=== PATIENT | male | born 1935 | race Caucasian/White ===

== ENCOUNTER 2020-03-19 | Outpatient (REF) | payer MEDICARE, SELFPAY | END 2020-03-19 00:01 | disposition home or self-care (01) | LOC: HO.VC | PROVIDERS: Visit Provider Internal Medicine | DX: Z23 Encounter for immunization (principal) | CPT/HCPCS: 0011A ==

== ENCOUNTER 2020-04-15 | Outpatient (REF) | payer MEDICARE, SELFPAY | END 2020-04-15 00:01 | disposition home or self-care (01) | LOC: HO.VC | PROVIDERS: Visit Provider Internal Medicine | DX: Z23 Encounter for immunization (principal) | CPT/HCPCS: 0012A ==

== ENCOUNTER → 2020-08-13 09:50 | Outpatient (REF) | payer BC, SELFPAY | LOC: HO.CARD 09:50 | PROVIDERS: PCP Internal Medicine; Visit Provider Internal Medicine | DX: I48.19 Other persistent atrial fibrillation (principal); R00.1 Bradycardia, unspecified; I10 Essential (primary) hypertension; Z79.899 Other long term (current) drug therapy; Z87.891 Personal history of nicotine dependence | CPT/HCPCS: 93005 ==

== ENCOUNTER → 2020-08-19 09:53 | Outpatient (REF) | payer MEDICARE, SELFPAY ==
--- NOTE | 2020-08-19 14:27 | ECG_ITS ---
Hook-up date: 2020-08-19 10:19:00 Duration: 45:31:00 Test Indications: PAF Medications: 10888 QRS complexes 404 Ventricular ectopics which represent <1 % of total QRS comp. * Supraventricular ectopics which represent % of total QRS comp. * Paced QRS complexs which represent % of total QRS comp. VENTRICULAR ECTOPY 396 Isolated 44 Bigeminal Cycles 4 Couplets 0 Runs 0 Beats in Runs * Beats LONGEST at * BPM at :: -- * Beats FASTEST at * BPM at :: -- SUPRAVENTRICULAR ECTOPY * Isolated * Couplets * Runs * Beats in Runs * Beats LONGEST at * BPM at :: -- * Beats FASTEST at * BPM at :: -- HEART RATES 33 MIN at 02:05:34 2020-08-20 46 AVG 66 MAX at 18:42:10 2020-08-19 LONGEST RR 1.8800 secs at 04:24:56 2020-08-20 S-T LEVELS Channel 1 - 128 mm at 10:19:00 2020-08-19 - 128 mm at 10:19:00 2020-08-19 Channel 2 - 128 mm at 10:19:00 2020-08-19 - 128 mm at 10:19:00 2020-08-19 Channel 3 - 128 mm at 02:93:81 -- - 128 mm at 02:93:81 Basic rhythm Atrial fibrillation Intermittent with Junctional rhythm Frequent slow VR to AF, 98% of time HR < 60 bp, No significant pauses Occasional Premature ventricular complexes No diary submitted Referred By: Scot Trinidad Overread By: AMELIA MOREIRA MD
== END ==
LOC: HO.CARD 09:53
PROVIDERS: PCP Internal Medicine; Referring Provider Internal Medicine; Visit Provider Internal Medicine
DX: I48.0 Paroxysmal atrial fibrillation (principal); I48.19 Other persistent atrial fibrillation
CPT/HCPCS: 93226

== ENCOUNTER → 2020-08-27 09:43 | Outpatient (REF) | payer MEDICARE, SELFPAY | LOC: HO.SL 09:43 | PROVIDERS: Visit Provider Internal Medicine | DX: G47.33 Obstructive sleep apnea (adult) (pediatric) (principal); I48.19 Other persistent atrial fibrillation | CPT/HCPCS: 95806 ==

== ENCOUNTER → 2020-08-28 11:16 | Outpatient (REF) | payer MEDICARE, SELFPAY ==
--- NOTE | 2020-08-28 11:24 | CA_ITS ---
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 Study Quality: Good ECG Rhythm: Atrial Fibrillation Conclusions: - 1. Mildly reduced LV systolic function with mild LVH with restrictive filling pattern 2. Severe biatrial enlargement 3. Mild aortic regurgitation 4. At least moderate mitral regurgitation 5. Mildly elevated right ventricular systolic pressure 6. No pericardial effusion Findings Left Ventricle Normal left ventricular cavity size. There is mildly increased left ventricular wall thickness. The left ventricular systolic function is mildly decreased. The visually estimated ejection fraction is between 45-50%. Spectral Doppler is indicative of a restrictive filling pattern. Wall Motion Rest Echo Findings The basal inferoseptal and basal inferolateral segments are hypokinetic. 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 All other scored wall segments showed normal motion. Right Ventricle Normal right ventricular cavity size and systolic function. Atria Severe biatrial enlargement. There is no evidence of interatrial shunt. Aortic Valve There is mild calcification of the aortic valve. There is no aortic valve stenosis. There is mild aortic valve regurgitation. Mitral Valve There is mild anterior and posterior mitral leaflet thickening. There is moderate mitral valve regurgitation. There is no mitral valve stenosis. Pulmonic Valve The pulmonic valve is likely normal. Tricuspid Valve Normal tricuspid valve structure. There is mild tricuspid valve regurgitation. Mildly elevated right atrial pressure. Mild pulmonary hypertension is present. Great Vessels All visible segments of the aorta are normal in size. The pulmonary artery was not well visualized. Venous The inferior vena cava is moderately dilated and collapses less than 50% with inspiration. Pericardium/Pleural There is no evidence of pericardial effusion. Prior Study Comparison No previous study in the last 5 years for comparison Measurements 2D Linear Measurements IVSd: 1.23 0.6-0.9/0.6-1.0 cm LVIDd: 5.54 3.9-5.3/4.2-5.9 cm LVIDd Index: 3.30 2.4-3.2/2.2-3.1 cm/m2 LVIDs: 4.16 2.0-3.6 cm LVPWd: 1.27 0.7-1.1 cm Ao Root: 3.90 2.1-3.5 cm LA Diam: 4.30 2.7-3.8/3.0-4.0 cm LAIDs Index: 2.56 1.5-2.3 cm/m2 LV Mass: 363.67 67-162/88-224 g LV Mass Index: 216.47 43-95/49-115 g/m2 LVOT Diam: 2.40 3.0+(-)1.3 cm 2D Systolic Function EF 4C: 41.90 >55% EF 2C: 45.00 >55% Mitral Valve MV Pk E: 1.35 MV PK A: 0.53 MV Decel Time: 213.00 E/A: 2.50 PHT: 62.00 MVA PHT: 3.55 Decel [place]: 6.35 Aortic Valve AoV Pk Erickson: 1.39 AoV Mn Erickson: 0.94 AoV VTI: 0.35 AoV Pk Grad: 8.00 Aov Mn Grad: 4.00 BRIAN Cont.VTI: 2.92 LVOT LVOT Pk Eric[place]on: 0.86 LVOT Mn Erickson: 0.55 LVOT VTI: 0.23 LVOT Pk Grad: 3.00 LVOT Mn Grad: 1.00 LVOT Diam: 2.40 LVOT Area: 4.52 Diastolic Function MV Pk E: 1.35 MV Pk A: 0.53 E/A: 2.50 Right Ventricle TAPSE (mm): 2.49 Tricuspid Valve TR Pk Erickson: 2.89 TR Pk Grad: 33.00 RA Press: 8.00 RVSP: 41.00 Great Vessels Aorta Ao Root-2D: 3.90 2.0-3.7 cm Ao Asc: 3.80 2.1-3.4 cm Updated in Other Vendor System with Status of Final Loki Farrell MD electronically signed on 08/28/2020 2:02:22 PM with status of Final
== END ==
LOC: HO.CARD 11:16
PROVIDERS: Visit Provider Internal Medicine
DX: I25.10 Atherosclerotic heart disease of native coronary artery without angina pectoris (principal); I48.19 Other persistent atrial fibrillation
CPT/HCPCS: 93306

== ENCOUNTER → 2020-09-24 10:18 | Outpatient (BNVA) | payer MEDICARE, SELFPAY | PROVIDERS: PCP Internal Medicine; Referring Provider Internal Medicine; Visit Provider Internal Medicine | DX: I48.19 Other persistent atrial fibrillation (principal); I10 Essential (primary) hypertension; G47.33 Obstructive sleep apnea (adult) (pediatric); R00.1 Bradycardia, unspecified | CPT/HCPCS: 99212 ==

== ENCOUNTER → 2020-10-14 09:46 | Outpatient (BNVA) | payer MEDICARE, SELFPAY | PROVIDERS: PCP Internal Medicine; Visit Provider Internal Medicine | DX: G47.33 Obstructive sleep apnea (adult) (pediatric) (principal); I48.91 Unspecified atrial fibrillation; I10 Essential (primary) hypertension | CPT/HCPCS: 99202 ==

== ENCOUNTER → 2020-11-25 09:48 | Outpatient (BNVA) | payer MEDICARE, SELFPAY | PROVIDERS: PCP Internal Medicine; Visit Provider Internal Medicine | DX: G47.33 Obstructive sleep apnea (adult) (pediatric) (principal) | CPT/HCPCS: 99212 ==

== ENCOUNTER → 2020-12-25 09:58 | Outpatient (BNVA) | payer MEDICARE, SELFPAY | PROVIDERS: PCP Internal Medicine; Visit Provider Internal Medicine | DX: G47.33 Obstructive sleep apnea (adult) (pediatric) (principal) | CPT/HCPCS: 99212 ==

== ENCOUNTER → 2020-12-30 10:04 | Outpatient (BNVA) | payer MEDICARE, SELFPAY | PROVIDERS: PCP Internal Medicine; Referring Provider Internal Medicine; Visit Provider Internal Medicine | DX: I48.19 Other persistent atrial fibrillation (principal); I10 Essential (primary) hypertension; I25.10 Atherosclerotic heart disease of native coronary artery without angina pectoris; R00.1 Bradycardia, unspecified; G47.33 Obstructive sleep apnea (adult) (pediatric) | CPT/HCPCS: 99212 ==

== ENCOUNTER → 2021-01-05 09:44 | Outpatient (REF) | payer MEDICARE, SELFPAY ==
--- NOTE | ~2021-01-05 | NM_ITS ---
EXERCISE MYOCARDIAL PERFUSION STUDY INDICATION: Abnormal EKG, cardiomyopathy, assess for ischemia TECHNIQUE: The patient was brought in for an exercise perfusion study on 01/05/2021. Patient performed exercise as per Haroldo protocol and was injected 25 mCi of sestamibi once target heart rate was achieved. Images were obtained using the SPECT gamma camera interlaced with the gating device. Images were obtained in supine position. Resting study was not completed as the patient could not return for more than one month due to ankle injury. Images were processed with the software and compared side to side in short axis, horizontal long axis and vertical long axis views. FINDINGS: Raw images were reviewed. The stress perfusion study showed no significant perfusion abnormality. The gated study shows normal LV systolic function with calculated LVEF of 69%. LV cavity is normal in size. The gated study shows normal wall thickening and contraction of segments. Resting study not performed as above. The findings are consistent with no clear perfusion modality during stress. NM/NM janie perf SPECT rest & str IMPRESSION: 1. Myocardial perfusion imaging study shows no definite abnormality based on stress only imaging, but at a low workload of only 4.6METS and 63% max predicted heart rate. Hence, inconclusive. 2. Gated LVEF is 69% during stress. EKG component of the test reported separately.
--- NOTE | 2021-01-05 09:47 | CA_ITS ---
Acquisition Time: 2021-01-05 10:00:30 Total Exercise Time: 00:03:31 Test Indications: ABN EKG, AFIB, BRADYCARDIA Medications: SEE CHART Protocol: SAMANTHA Max HR: 086 BPM 63% of Pred: 135 BPM Max BP: 116/060 mmHG Max Work Load: 4.6 METS Exercise stress test with exercise 3 min 31 sec of Samantha stage 1, with report of all over fatigue and need to stop, no significant sob and no chest discomfort, with isolated PVC, at times in ventricular bigeminy pattern, with normotensive response to exercise, with nondiagnostic EKG for ischemia due to suboptimal heart rate, achieving briefly max heart rate of 81, 60% MPHR. Nuclear imaging pending. Test reviewed with Dr Trinidad. Lexiscan not used due to significant bradycardia at baseline. Referred By: Scot Trinidad Overread By: MARVIN WILEY
== END ==
LOC: HO.CARD 09:44
PROVIDERS: PCP Internal Medicine; Visit Provider Internal Medicine
DX: I25.10 Atherosclerotic heart disease of native coronary artery without angina pectoris (principal)
CPT/HCPCS: 78452; 93017; A9500; J0280; J2785

== ENCOUNTER 2021-01-07 03:52 | Emergency (ER) | payer MEDICARE, SELFPAY ==
--- NOTE | ~2021-01-07 | XR_ITS ---
EXAMINATION: XR FOOT, RIGHT CLINICAL INFORMATION: Right foot pain COMPARISON: None TECHNIQUE: AP, lateral, and oblique views of the right foot. FINDINGS: Osseous alignment is anatomic. No acute fracture is seen. There are degenerative changes at the tarsotarsal and tarsometatarsal articulations. Plantar calcaneal spur is noted. No significant focal soft tissue abnormality identified. XR/XR foot RT 2V IMPRESSION: No acute findings identified. Degenerative changes.
[2021-01-07 04:11] VITALS: BP 160/80; BP 186/80; PULSE 56; PULSE 60; RESP 16; TEMP 36.8; O2SAT 98; BMI 20.3
--- NOTE | 2021-01-07 05:46 | ED.LOWEXIN ---
HPI - Extremity Injury (Lower) General Chief Complaint: Extremity Injury, Lower Stated Complaint: r foot pain w/ edema Time Seen by Provider: 01/07/21 05:46 Source: patient and EMS Mode of arrival: EMS Limitations: no limitations History of Present Illness HPI Narrative: 85 years old male came in for evaluation of right foot pain. Couple days ago patient had cardiac stress test on the treadmill machine, patient do not remember hurting his foot but started to have pain in the right foot, patient still able to ambulate and bear weight on the right foot. Related Data Home Medications Medication Instructions Recorded Confirmed brimonidine 0.2 %-timolol 0.5 % 1 drp OPHTHALMIC (EYE) Q12H 01/25/20 12/30/20 eye drops (Combigan) latanoprost 0.005 % eye drops 1 drp OPHTHALMIC (EYE) QPM 01/25/20 12/30/20 Previous Rx's Medication Instructions Recorded amlodipine 5 mg tablet 5 mg PO DAILY #90 tab 12/25/19 apixaban 2.5 mg tablet (Eliquis) 2.5 mg PO BID #180 tab 08/13/20 hydrochlorothiazide 12.5 mg tablet 12.5 mg PO DAILY #90 tab 12/11/20 Allergies Allergy/AdvReac Type Severity Reaction Status Date / Time Penicillins Allergy Unknown RASH Verified 12/30/20 10:17 Review of Systems Review of Systems: all other systems are reviewed and are negative Constitutional: Reports as per HPI and Reports no additional constitutional complaints Eyes: Reports as per HPI and Reports no additional eye complaints Reports system reviewed and no additional complaints, except as documented Cardiovascular: Reports as per HPI and Reports no additional cardiovascular complaints Respiratory: Reports as per HPI and Reports no additional respiratory complaints Gastrointestinal: Reports as per HPI and Reports no additional gastrointestinal complaints Genitourinary: Reports no additional female genitourinary complaints Musculoskeletal: Reports no additional musculoskeletal complaints Skin/Breast: Reports system reviewed and no additional complaints, except as docu Psychiatric: Reports no additional psychiatric complaints Endocrine: Reports no additional endocrine complaints Hematologic/Lymphatic: Reports no additional hematologic/lymphatic complaints Allergic/Immunologic: Reports no additional allergic/immunologic complaints Reports system reviewed and no additional complaints, except as documented and Reports Abnormal speech present [facility] Past Medical History Medical History Atrial fibrillation Hypertension JOHN (obstructive sleep apnea) Surgical History History of cataract surgery History of cystoscopy History of hernia repair History of hydrocelectomy History of inguinal hernia repair History of nephrectomy, left Family History Family History Father Pneumonia Mother Renal failure Social History Social History Alcohol intake: current Alcohol intake frequency: a few times a month Patient Tobacco Use Status: Former Tobacco user Tobacco use type: Cigarette Second Hand Smoke Exposure: No Advance Directives: No Advance Directives Information Provided: Yes Physical Exam Vital Signs: Vital Signs: Last Vital Signs Temp 98.2 F 01/07/21 04:11 Pulse 56 01/07/21 04:11 Resp 16 01/07/21 04:11 BP 186/80 H 01/07/21 04:11 Pulse Ox 98 01/07/21 04:11 Body Mass Index 20.3 vital signs have been reviewed as appeared to be correct. Blood pressure elevated. Heart rate normal. Respiration rate normal. Temperature normal. Oxygen saturation normal. Appearance: Alert. Oriented X3. No acute distress. Head: Normal external exam. Normocephalic. Atraumatic. No Cheung signs noted. No raccoon eyes noted Eyes: PERRLA. EOMI. Conjunctiva and sclera normal. Eyelids normal. ENT: TM's Normal. Pharynx normal. Uvula midline. Moist mucous membranes. No trismus noted. No drooling noted. No muffled voice noted. Neck: Normal inspection. Neck supple. FROM. No adenopathy. Thyroid Normal. No meningeal signs. No neck mass noted. CVS: Normal heart rate and rhythm. Heart sound normal. No murmurs noted. Pulses normal throughout. Respiratory: No respiratory distress. Painless inspiration. Breath sounds normal. No wheezes/rales/rhonchi noted. Chest nontender. No accessory muscle usage noted or decreased air movement noted. Abdomen: Soft and nontender. Bowel sounds normal in all 4 quadrants. No distention noted. No organomegaly noted. No visible injury noted. Back: No CVA tenderness. Full range of motion noted. Skin: Skin warm and dry. Normal skin color. Normal skin turgor. No rashes/lesions/lacerations noted. Extremities: right foot exam: No acute deformity, no step-off, neurovascularly intact. Neuro: Oriented X 3. Cranial nerve exam: II-XII are grossly intact No motor deficit. No sensory deficit. Reflexes normal. Course Course Course Narrative: Assessment and plan. 85-year-old male came in for evaluation of her right foot pain, x-ray showed no acute fracture. Colin bandage /Tylenol. MDM - Extremity Injury (Lower) Medical Records Attestation: I reviewed the patient's medical records. Imaging Data Right foot x-ray: Radiologist's impression: No acute findings identified. Degenerative changes. Discharge Plan Discharge Clinical Impression: Ankle sprain and strain Foot sprain Qualifiers: Encounter type: initial encounter Laterality: right Qualified Code(s): S93.601A - Unspecified sprain of right foot, initial encounter Patient Disposition: Home, Self-Care Instructions: Foot Sprain (ED) Prescriptions: No Action amlodipine 5 mg tablet 5 mg PO DAILY Qty: 90 RF: 8 hydrochlorothiazide 12.5 mg tablet 12.5 mg PO DAILY Qty: 90 RF: 8 Combigan 0.2-0.5 % drops 1 drp ophthalmic (eye) Q12H RF: 0 latanoprost 0.005 % drops 1 drp ophthalmic (eye) QPM RF: 0 Eliquis 2.5 mg tablet 2.5 mg PO BID Qty: 180 RF: 4 Referrals: Al Blunt MD [Primary Care Provider] - 2 days
== END 2021-01-07 08:27 | disposition home or self-care (01) ==
PROVIDERS: Emergency Provider Emergency Medicine; PCP Internal Medicine
DX: S93.601A Unspecified sprain of right foot, initial encounter (principal); R60.0 Localized edema; X50.1XXA Overexertion from prolonged static or awkward postures, initial encounter; Y93.9 Activity, unspecified; Y92.9 Unspecified place or not applicable; Y99.9 Unspecified external cause status
CPT/HCPCS: 73620; 99283

== ENCOUNTER 2021-04-21 10:01 | Outpatient (REF) | payer MEDICARE, SELFPAY ==
[2021-04-21 12:22] LABS: Alanine Aminotransferase 19 U/L (0-40); Albumin Level 4.1 g/dL (3.5-5.0); Alkaline Phosphatase 76 U/L (39-117); Anion Gap 11 (12-20); Aspartate Amino Transferase 25 U/L (5-37); Bilirubin Direct 0.2 mg/dL (0.0-0.5); Bilirubin Total 0.6 mg/dL (0.0-1.0); Blood Urea Nitrogen 34 mg/dL (9-16); Carbon Dioxide 29 mmol/L (22-29); Chloride 106 mmol/L (96-108); Cholesterol 146 mg/dL; Estimated Glomerular Filt Rate 40; Glucose Random 94 mg/dL (60-115); HDL Cholesterol 43 mg/dL; LDL Cholesterol Calculated 87 mg/dl; Potassium 4.2 mmol/L (3.3-5.1); Sodium 142 mmol/L (135-145); Total Protein 6.7 g/dL (6.5-8.0); Triglycerides 81 mg/dL
== END 2021-04-21 10:02 | disposition home or self-care (01) ==
LOC: HO.LAB 10:01
PROVIDERS: Internal Medicine; PCP Internal Medicine; Visit Provider Internal Medicine
DX: I25.10 Atherosclerotic heart disease of native coronary artery without angina pectoris (principal); E78.5 Hyperlipidemia, unspecified; G47.33 Obstructive sleep apnea (adult) (pediatric); G47.31 Primary central sleep apnea
CPT/HCPCS: 36415; 80048; 80061; 80076; 99212

== ENCOUNTER → 2021-05-06 10:05 | Outpatient (BNVA) | payer MEDICARE, SELFPAY | PROVIDERS: PCP Internal Medicine; Referring Provider Internal Medicine; Visit Provider Internal Medicine | DX: I48.19 Other persistent atrial fibrillation (principal); I25.10 Atherosclerotic heart disease of native coronary artery without angina pectoris; I10 Essential (primary) hypertension; R00.1 Bradycardia, unspecified; G47.33 Obstructive sleep apnea (adult) (pediatric) | CPT/HCPCS: 93005; 99212 ==

== ENCOUNTER → 2021-07-15 10:24 | Outpatient (BNVA) | payer MEDICARE, SELFPAY | PROVIDERS: PCP Internal Medicine; Referring Provider Internal Medicine; Visit Provider Internal Medicine | DX: I48.19 Other persistent atrial fibrillation (principal); I25.10 Atherosclerotic heart disease of native coronary artery without angina pectoris; I10 Essential (primary) hypertension; R00.1 Bradycardia, unspecified; G47.33 Obstructive sleep apnea (adult) (pediatric) | CPT/HCPCS: 99212 ==

== ENCOUNTER → 2021-08-27 10:48 | Outpatient (BNVA) | payer MEDICARE, SELFPAY | PROVIDERS: PCP Internal Medicine; Visit Provider Internal Medicine | DX: G47.33 Obstructive sleep apnea (adult) (pediatric) (principal); G47.31 Primary central sleep apnea; Z99.89 Dependence on other enabling machines and devices | CPT/HCPCS: 99212 ==

== ENCOUNTER → 2021-11-24 10:07 | Outpatient (BNVA) | payer MEDICARE, SELFPAY | PROVIDERS: PCP Internal Medicine; Visit Provider Internal Medicine | DX: G47.33 Obstructive sleep apnea (adult) (pediatric) (principal); G47.31 Primary central sleep apnea | CPT/HCPCS: 99212 ==

== ENCOUNTER → 2022-01-14 10:37 | Outpatient (BNVA) | payer MEDICARE, SELFPAY | PROVIDERS: PCP Internal Medicine; Referring Provider Internal Medicine; Visit Provider Internal Medicine | DX: I48.19 Other persistent atrial fibrillation (principal); I25.10 Atherosclerotic heart disease of native coronary artery without angina pectoris; I10 Essential (primary) hypertension; G47.33 Obstructive sleep apnea (adult) (pediatric) | CPT/HCPCS: 99212 ==

== ENCOUNTER → 2022-03-31 09:34 | Outpatient (BNVA) | payer MEDICARE, SELFPAY | PROVIDERS: PCP Internal Medicine; Visit Provider Internal Medicine | DX: G47.33 Obstructive sleep apnea (adult) (pediatric) (principal); G47.31 Primary central sleep apnea; Z99.89 Dependence on other enabling machines and devices | CPT/HCPCS: 99212 ==